=== PATIENT | female | born 1935 | race Caucasian/White ===

== ENCOUNTER 2024-12-09 05:38 | Inpatient (IN) | payer MEDICARE, MEDICAID ==
[~2024-12-09] VITALS: Ht 157.5 cm; Wt 72.6 kg
[~2024-12-09 05:38] MED LIST: HEPA50007 SQ
[2024-12-09 06:50] LABS: BASOPHILS % (AUTO) 0.9 % (0.0-2.0); EOSINOPHILS # (AUTO) 0.2 K/uL (0.0-0.7); EOSINOPHILS % (AUTO) 3.3 % (0.0-6.0); HEMATOCRIT 33 % (33-45); HEMOGLOBIN 10.9 g/dL (11.5-14.8); LYMPHOCYTES # (AUTO) 1.1 K/uL (0.8-4.8); LYMPHOCYTES % (AUTO) 22.6 % (20.0-44.0); MEAN CORPUSCULAR HEMOGLOBIN 30 PG (26.0-33.0); MEAN CORPUSCULAR HGB CONC 33 g/dl (31.0-36.0); MEAN CORPUSCULAR VOLUME 91 fL (82-100); MONOCYTES # (AUTO) 0.4 K/uL (0.1-1.30); MONOCYTES % (AUTO) 8.9 % (2.0-12.0); NEUTROPHILS % (AUTO) 64.3 % (43.0-81.0); PLATELET COUNT (AUTO) 292 K/uL (150-450); RED BLOOD CELL COUNT(AUTO) 3.63 MIL/uL (4.0-5.2); RED CELL DISTRIBUTION WIDTH 18.2 % (11.5-15.0); WHITE BLOOD COUNT (AUTO) 4.7 K/uL (4.3-11.0)
[2024-12-09 06:57] LABS: CALCIUM, SERUM 9.5 mg/dL (8.5-10.1); CARBON DIOXIDE 25 mmol/L (21-32); CHLORIDE 101 mmol/L (98-107); CREATININE 2.1 mg/dL (0.6-1.3); GLUCOSE 104 mg/dL (74-106); SODIUM SERUM 137 mmol/L (136-145); UREA NITROGEN, BLOOD 28 mg/dL (7-18)
[2024-12-09 07:10] LABS: ALANINE AMINOTRANSFERASE 18 U/L (12-78); ALBUMIN 3.1 g/dL (3.4-5.0); ALKALINE PHOSPHATASE 144 U/L (46-116); ASPARTATE AMINOTRANSFERASE 22 U/L (15-37); BILIRUBIN,DIRECT 0.1 mg/dL (0.0-0.2); BILIRUBIN,TOTAL 0.3 mg/dL (0.2-1.0); NT-PRO BNP 2470 pg/mL (0-125); TOTAL PROTEIN, SERUM 6.9 g/dL (6.4-8.2)
[2024-12-09] MEDS: ASPIRIN 325 MG TABLET PO ONE (07:41)
[2024-12-09] MEDS ORDERED: TRAZ-182 PO (09:54)
[2024-12-09] MEDS ORDERED: MAGN400O6 PO (09:54)
[2024-12-09] MEDS ORDERED: BISA10SU11 RC (09:54)
[2024-12-09] MEDS ORDERED: FERR325T24 PO (09:54)
[2024-12-09] MEDS ORDERED: ACET325T53 PO (09:54)
[2024-12-09] MEDS ORDERED: ROSU20TA32 PO (09:54)
[2024-12-09] MEDS ORDERED: LEVO75TA7 PO (09:54)
[2024-12-09] MEDS ORDERED: NIFE-34 PO (09:54)
[2024-12-09] MEDS ORDERED: MELA3TAB41 PO (09:54)
[2024-12-09] MEDS ORDERED: HYDR100T27 PO (09:54)
[2024-12-09] MEDS ORDERED: NA P133E RC (09:54)
[2024-12-09] MEDS ORDERED: CLON0.3P TD (09:54)
[2024-12-09] MEDS ORDERED: DEXL60CA3 PO (09:54)
[2024-12-09] MEDS ORDERED: DICL100G34 TP (09:54)
[2024-12-09] MEDS ORDERED: AMIO200T5 PO (09:54)
[2024-12-09] MEDS ORDERED: DOCU100C36 PO (09:54)
[2024-12-09] MEDS ORDERED: POLY17PO4 PO (09:54)
[2024-12-09] MEDS ORDERED: HYDR4TAB4 PO (09:54)
[2024-12-09] MEDS ORDERED: ACET-73 PO (09:54)
[2024-12-09] MEDS ORDERED: HYDR2TAB7 PO (09:55)
[2024-12-09 12:00] VITALS: BP 144/71; TEMP 98.2; O2SAT 97
[2024-12-09 16:00] VITALS: BP 126/49; TEMP 97.6; O2SAT 100
[2024-12-09] MEDS ORDERED: ONDANSETRON HCL/PF 4 MG/2 ML VIAL IVP PRN (16:00)
[2024-12-09] MEDS ORDERED: NA PHOS,M-B/NA PHOS,DI-BA 1 EA ENEMA RC PRN (16:00)
[2024-12-09] MEDS ORDERED: BISACODYL SUPP (10 MG) 10 MG/SUPP.RECT SUPP.RECT RC PRN (16:00)
[2024-12-09] MEDS ORDERED: MAGNESIUM HYDROXIDE 30 ML UDC PO PRN (16:00)
[2024-12-09] MEDS ORDERED: MAG HYDROX/AL HYDROX/SIMETH 30 ML UDC PO PRN (16:00)
[2024-12-09] MEDS: ENOXAPARIN SODIUM 30 MG/0.3 ML DISP.SYRIN SQ SCH (16:02)
[2024-12-09] MEDS: POLYETHYLENE GLYCOL 3350 17 GM POWD.PACK PO SCH (16:43)
[2024-12-09] MEDS: FERROUS SULFATE (325 MG) 325 MG/TAB TABLET PO SCH (16:43)
[2024-12-09] MEDS: hydrALAZINE HCL 50 MG TABLET PO SCH (16:45)
[2024-12-09 17:31] LABS: THYROID STIMULATING HORMONE 14.71 uIU/mL (0.358-3.74)
[2024-12-09 20:00] VITALS: BP 150/75; TEMP 97.9; O2SAT 97
[2024-12-09] MEDS: ATORVASTATIN 40 MG TABLET PO SCH (21:26)
[2024-12-09] MEDS: TRAZODONE 50 MG TABLET PO SCH (21:26)
[2024-12-10] VITALS: BP 161/88; TEMP 97.9; O2SAT 97
[2024-12-10 04:00] VITALS: BP 159/84; TEMP 97.8; O2SAT 97
[2024-12-10] MEDS: NITROGLYCERIN 0.4 MG/TAB BOTTLE SL PRN (06:12)
[2024-12-10] MEDS: ACETAMINOPHEN 325 MG TABLET PO PRN (06:57)
[2024-12-10] MEDS: MORPHINE SULFATE INJ 2 MG/ML DISP.SYRIN IV PRN (07:24)
[2024-12-10 07:31] LABS: BASOPHILS % (AUTO) 0.5 % (0.0-2.0); EOSINOPHILS # (AUTO) 0.1 K/uL (0.0-0.7); EOSINOPHILS % (AUTO) 2.1 % (0.0-6.0); HEMATOCRIT 37 % (33-45); HEMOGLOBIN 11.9 g/dL (11.5-14.8); LYMPHOCYTES # (AUTO) 1.3 K/uL (0.8-4.8); LYMPHOCYTES % (AUTO) 24.7 % (20.0-44.0); MEAN CORPUSCULAR HEMOGLOBIN 30 PG (26.0-33.0); MEAN CORPUSCULAR HGB CONC 33 g/dl (31.0-36.0); MEAN CORPUSCULAR VOLUME 91 fL (82-100); MONOCYTES # (AUTO) 0.4 K/uL (0.1-1.30); MONOCYTES % (AUTO) 7.9 % (2.0-12.0); NEUTROPHILS # (AUTO) 3.5 K/uL (1.8-8.9); NEUTROPHILS % (AUTO) 64.8 % (43.0-81.0); PLATELET COUNT (AUTO) 327 K/uL (150-450); RED BLOOD CELL COUNT(AUTO) 4.04 MIL/uL (4.0-5.2); RED CELL DISTRIBUTION WIDTH 18.1 % (11.5-15.0); WHITE BLOOD COUNT (AUTO) 5.3 K/uL (4.3-11.0)
[2024-12-10 07:51] LABS: MAGNESIUM 2.1 mg/dL (1.8-2.4); PHOSPHORUS 2.8 mg/dL (2.5-4.9); POTASSIUM 4.3 mmol/L (3.5-5.1)
[2024-12-10 08:00] VITALS: BP 166/83; TEMP 98.6; O2SAT 100
[2024-12-10] MEDS: LEVOTHYROXINE SODIUM 75 MCG TABLET PO SCH (08:20)
[2024-12-10] MEDS: NIFEdipine XL (30MG) 30 MG TAB PO SCH (08:21)
[2024-12-10] MEDS: PANTOPRAZOLE 40 MG TABLET.DR PO SCH (08:21)
[2024-12-10] MEDS: DOCUSATE SODIUM 100 MG CAPSULE PO SCH (08:21)
[2024-12-10] MEDS: AMIODARONE HCL 200 MG TABLET PO SCH (08:22)
[2024-12-10] MEDS: METOPROLOL TARTRATE 50 MG TABLET PO SCH (11:03)
[2024-12-10 12:00] VITALS: BP 138/77; TEMP 97.9; O2SAT 98
[2024-12-10 16:47] VITALS: BP 123/77; TEMP 98.4; O2SAT 99
[2024-12-10 20:00] VITALS: BP 145/88; TEMP 98.2; O2SAT 99
[2024-12-11] VITALS: BP 148/77; TEMP 98.2; O2SAT 98
[2024-12-11 05:00] VITALS: BP 156/81; TEMP 98.1; O2SAT 98
[2024-12-11 06:20] LABS: BASOPHILS % (AUTO) 0.9 % (0.0-2.0); EOSINOPHILS # (AUTO) 0.2 K/uL (0.0-0.7); EOSINOPHILS % (AUTO) 2.8 % (0.0-6.0); HEMATOCRIT 37 % (33-45); LYMPHOCYTES # (AUTO) 1.3 K/uL (0.8-4.8); LYMPHOCYTES % (AUTO) 24.9 % (20.0-44.0); MEAN CORPUSCULAR HEMOGLOBIN 30 PG (26.0-33.0); MEAN CORPUSCULAR HGB CONC 32 g/dl (31.0-36.0); MEAN CORPUSCULAR VOLUME 91 fL (82-100); MONOCYTES # (AUTO) 0.4 K/uL (0.1-1.30); MONOCYTES % (AUTO) 8.3 % (2.0-12.0); NEUTROPHILS # (AUTO) 3.4 K/uL (1.8-8.9); NEUTROPHILS % (AUTO) 63.1 % (43.0-81.0); PLATELET COUNT (AUTO) 332 K/uL (150-450); RED BLOOD CELL COUNT(AUTO) 4.05 MIL/uL (4.0-5.2); RED CELL DISTRIBUTION WIDTH 18.1 % (11.5-15.0); WHITE BLOOD COUNT (AUTO) 5.4 K/uL (4.3-11.0)
[2024-12-11 06:31] LABS: ALBUMIN 3.2 g/dL (3.4-5.0); BILIRUBIN,TOTAL 0.3 mg/dL (0.2-1.0); CALCIUM, SERUM 9.9 mg/dL (8.5-10.1); MAGNESIUM 2.2 mg/dL (1.8-2.4); PHOSPHORUS 3.8 mg/dL (2.5-4.9); POTASSIUM 3.9 mmol/L (3.5-5.1); TOTAL PROTEIN, SERUM 7.1 g/dL (6.4-8.2)
[2024-12-11 07:08] LABS: CREATININE, URINE 61.9 MG/DL (30.0-125.0); URINE TOTAL PROTEIN 37.8 mg/dL (0-11.9)
[2024-12-11 07:24] LABS: APPEARANCE,URINE CLEAR (CLEAR); BILIRUBIN,URINE NEGATIVE (NEGATIVE); BLOOD, URINE NEGATIVE Ery/uL (NEGATIVE); COLOR,URINE YELLOW (YELLOW); KETONES,URINE NEGATIVE (NEGATIVE); LEUKOCYTE ESTERASE ,URINE NEGATIVE (NEGATIVE); NITRITE, URINE NEGATIVE (NEGATIVE); PROTEIN,URINE TRACE mg/dl (NEGATIVE); UGLUCOSE NEGATIVE (NEGATIVE); UROBILINOGEN,URINE 0.2 EU/dL (0.2)
[2024-12-11 07:48] LABS: ADD URINE CULTURE NO; BACTERIA,URINE Rare /HPF (None Seen); RBC,URINE 0-2 /HPF (0-2); SQUAMOUS EPITHELIAL CELL,UR 0-2 /HPF (None Seen)
[2024-12-11 08:00] VITALS: BP 144/79; TEMP 98.2; O2SAT 96
[2024-12-11 10:44] LABS: EOSINOPHIL,URINE None Seen
[2024-12-11 12:00] VITALS: BP 135/74; TEMP 98.1; O2SAT 100
[2024-12-11] MEDS: IV 1/2NS 1000 ML 1,000 ML IV PRN (14:25)
[2024-12-11 16:00] VITALS: BP 130/67; TEMP 98.4; O2SAT 97
[2024-12-12 06:07] LABS: PTH, INTACT 15 pg/mL (15-65)
[2024-12-12 08:00] VITALS: BP 100/81; TEMP 98.4; O2SAT 100
[2024-12-12 12:00] VITALS: BP 125/80; TEMP 98.7; O2SAT 100
[2024-12-12 16:00] VITALS: BP 135/74; TEMP 97.5; O2SAT 99
[2024-12-12 17:05] VITALS: BP 138/74
[2024-12-12 20:04] LABS: CALCIUM, SERUM 9.2 mg/dL (8.5-10.1); CREATININE 2.2 mg/dL (0.6-1.3)
[2024-12-13 09:08] LABS: *SPE ALBUMIN 3.3 g/dL (2.9-4.4); *SPE ALPHA-1-GLOBULIN 0.4 g/dL (0.0-0.4); *SPE ALPHA-2-GLOBULIN 0.9 g/dL (0.4-1.0); *SPE BETA GLOBULIN 0.9 g/dL (0.7-1.3); *SPE GLOBULIN, TOTAL 3.3 g/dL (2.2-3.9); *SPE M-SPIKE Not Observed g/dL (Not Observed); *SPE PROTEIN TOTAL 6.6 g/dL (6.0-8.5); *SPEGAMMA GLOBULIN 1.1 g/dL (0.4-1.8)
== END 2024-12-12 20:10 | DRG 303 ==
LOC: ER 05:47 → TELE 10:17
DX: I25.10 Atherosclerotic heart disease of native coronary artery without angina pectoris (principal); D68.59 Other primary thrombophilia; N17.9 Acute kidney failure, unspecified; I48.0 Paroxysmal atrial fibrillation; E03.9 Hypothyroidism, unspecified; E78.5 Hyperlipidemia, unspecified; F32.A Depression, unspecified; G47.00 Insomnia, unspecified; Z79.890 Hormone replacement therapy; Z79.899 Other long term (current) drug therapy; I12.9 Hypertensive chronic kidney disease with stage 1 through stage 4 chronic kidney disease, or unspecified chronic kidney disease; N18.9 Chronic kidney disease, unspecified; N28.1 Cyst of kidney, acquired
CPT/HCPCS: 36415; 71045-TC; 76770-TC; 80048-TC; 80053-TC; 80061-TC; 80076-TC; 81001; 82550-TC; 82570-TC; 83735-TC; 83880; 83970; 84100-TC; 84155; 84165; 84300-TC; 84443-TC; 84484-TC; 85025-TC; 87081-TC; 93307-TC; 97110-TC; 97116-TC; 97530-TC; A4223; G0378; J1650; J2270; J3490; J7030

== ENCOUNTER 2024-12-31 09:19 | Inpatient (IN) | payer MEDICARE, OTHER ==
[~2024-12-31] VITALS: Ht 160 cm; Wt 59.0 kg
[~2024-12-31 09:19] MED LIST changes: +ACET-73 PO; +ACET325T53 PO; +AMIO200T5 PO; +BISA10SU11 RC; +CLON0.3P TD; +DEXL60CA3 PO; +DICL100G34 TP; +DOCU100C36 PO; +FERR325T24 PO; +HYDR100T27 PO; +HYDR2TAB7 PO; +LEVO75TA7 PO; +MAGN400O6 PO; +MELA3TAB41 PO; +NA P133E RC; +NIFE-34 PO; +POLY17PO4 PO; +ROSU20TA32 PO; +TRAZ-182 PO; +VITS42.53 TP
[2024-12-31 10:32] LABS: BASOPHILS % (AUTO) 0.6 % (0.0-2.0); EOSINOPHILS # (AUTO) 0.1 K/uL (0.0-0.7); EOSINOPHILS % (AUTO) 1.7 % (0.0-6.0); HEMATOCRIT 36 % (33-45); HEMOGLOBIN 12.1 g/dL (11.5-14.8); LYMPHOCYTES # (AUTO) 1.9 K/uL (0.8-4.8); LYMPHOCYTES % (AUTO) 31.2 % (20.0-44.0); MEAN CORPUSCULAR HEMOGLOBIN 30 PG (26.0-33.0); MEAN CORPUSCULAR HGB CONC 33 g/dl (31.0-36.0); MEAN CORPUSCULAR VOLUME 90 fL (82-100); MONOCYTES # (AUTO) 0.5 K/uL (0.1-1.30); MONOCYTES % (AUTO) 7.7 % (2.0-12.0); NEUTROPHILS # (AUTO) 3.6 K/uL (1.8-8.9); NEUTROPHILS % (AUTO) 58.8 % (43.0-81.0); PLATELET COUNT (AUTO) 265 K/uL (150-450); RED BLOOD CELL COUNT(AUTO) 4.04 MIL/uL (4.0-5.2); RED CELL DISTRIBUTION WIDTH 17.4 % (11.5-15.0); WHITE BLOOD COUNT (AUTO) 6.2 K/uL (4.3-11.0)
[2024-12-31 10:41] LABS: CALCIUM, SERUM 10.3 mg/dL (8.5-10.1); CARBON DIOXIDE 23 mmol/L (21-32); CHLORIDE 105 mmol/L (98-107); CREATININE 2.2 mg/dL (0.6-1.3); GLUCOSE 88 mg/dL (74-106); POTASSIUM 4.2 mmol/L (3.5-5.1); SODIUM SERUM 141 mmol/L (136-145); UREA NITROGEN, BLOOD 40 mg/dL (7-18)
[2024-12-31 10:45] LABS: INR 0.99 (0.91-1.10); PARTIAL THROMBOPLASTIN TIME 28.4 SEC (24.3-34.3); PROTHROMBIN TIME 10.5 SECS (9.2-11.1)
[2024-12-31 10:48] LABS: ALANINE AMINOTRANSFERASE 34 U/L (12-78); ALBUMIN 3.7 g/dL (3.4-5.0); ALKALINE PHOSPHATASE 115 U/L (46-116); ASPARTATE AMINOTRANSFERASE 29 U/L (15-37); BILIRUBIN,DIRECT 0.1 mg/dL (0.0-0.2); BILIRUBIN,TOTAL 0.2 mg/dL (0.2-1.0); TOTAL PROTEIN, SERUM 7.9 g/dL (6.4-8.2)
[2024-12-31] MEDS ORDERED: NITR0.4T48 SL (10:52)
[2024-12-31] MEDS ORDERED: [UNRECOGNIZED DRUG - OTHER] TP (10:52)
[2024-12-31] MEDS ORDERED: PANT40TA49 PO (10:52)
[2024-12-31] MEDS ORDERED: METO50TA16 PO (10:52)
[2024-12-31] MEDS ORDERED: LORA-258 PO (10:52)
[2024-12-31] MEDS ORDERED: APIX2.5T PO (10:52)
[2024-12-31 11:53] LABS: APPEARANCE,URINE SLIGHTLY CLOUDY (CLEAR); BILIRUBIN,URINE NEGATIVE (NEGATIVE); BLOOD, URINE NEGATIVE Ery/uL (NEGATIVE); COLOR,URINE YELLOW (YELLOW); KETONES,URINE NEGATIVE (NEGATIVE); LEUKOCYTE ESTERASE ,URINE 2+ (NEGATIVE); NITRITE, URINE NEGATIVE (NEGATIVE); PROTEIN,URINE TRACE mg/dl (NEGATIVE); UGLUCOSE NEGATIVE (NEGATIVE); UROBILINOGEN,URINE 0.2 EU/dL (0.2)
[2024-12-31 12:44] LABS: BACTERIA,URINE Many /HPF (None Seen)
[2024-12-31 12:45] LABS: ADD URINE CULTURE YES; SQUAMOUS EPITHELIAL CELL,UR Few /HPF (None Seen)
[2024-12-31] MEDS ORDERED: Z GUARD REMEDY 4 OZ OINT TP PRN (13:00)
[2024-12-31] MEDS ORDERED: MAGNESIUM HYDROXIDE 30 ML UDC PO PRN (13:00)
[2024-12-31] MEDS ORDERED: MAG HYDROX/AL HYDROX/SIMETH 30 ML UDC PO PRN (13:00)
[2024-12-31] MEDS ORDERED: ONDANSETRON HCL/PF 4 MG/2 ML VIAL IVP PRN (13:00)
[2024-12-31] MEDS: CEFTRIAXONE 1 G in IV D5W 50 ML IV SCH (13:19)
[2024-12-31] MEDS: IV NS 0.9% 1,000 ML IV PRN (13:19)
[2024-12-31 13:59] VITALS: BP 148/91; TEMP 97.9; O2SAT 100
[2024-12-31] MEDS: ACETAMINOPHEN 325 MG TABLET PO PRN (14:53)
[2024-12-31 16:24] VITALS: BP 160/60; TEMP 97.9; O2SAT 97
[2024-12-31] MEDS: PANTOPRAZOLE 40 MG TABLET.DR PO SCH (17:13)
[2024-12-31] MEDS: FERROUS SULFATE (325 MG) 325 MG/TAB TABLET PO SCH (17:13)
[2024-12-31] MEDS: POLYETHYLENE GLYCOL 3350 17 GM POWD.PACK PO SCH (17:13)
[2024-12-31] MEDS: APIXABAN 2.5 MG TABLET PO SCH (17:16)
[2024-12-31] MEDS: ATORVASTATIN 40 MG TABLET PO SCH (22:00)
[2024-12-31 23:49] VITALS: BP 164/91; TEMP 98; O2SAT 96
[2025-01-01] MEDS ORDERED: hydrALAZINE HCL 10 MG TABLET PO PRN (06:30)
[2025-01-01 06:45] LABS: BASOPHILS % (AUTO) 0.6 % (0.0-2.0); EOSINOPHILS # (AUTO) 0.2 K/uL (0.0-0.7); EOSINOPHILS % (AUTO) 2.8 % (0.0-6.0); HEMATOCRIT 32 % (33-45); HEMOGLOBIN 10.9 g/dL (11.5-14.8); LYMPHOCYTES # (AUTO) 2.2 K/uL (0.8-4.8); LYMPHOCYTES % (AUTO) 33.9 % (20.0-44.0); MEAN CORPUSCULAR HEMOGLOBIN 31 PG (26.0-33.0); MEAN CORPUSCULAR HGB CONC 34 g/dl (31.0-36.0); MEAN CORPUSCULAR VOLUME 90 fL (82-100); MONOCYTES # (AUTO) 0.5 K/uL (0.1-1.30); MONOCYTES % (AUTO) 7.6 % (2.0-12.0); NEUTROPHILS # (AUTO) 3.6 K/uL (1.8-8.9); NEUTROPHILS % (AUTO) 55.1 % (43.0-81.0); PLATELET COUNT (AUTO) 240 K/uL (150-450); RED BLOOD CELL COUNT(AUTO) 3.57 MIL/uL (4.0-5.2); RED CELL DISTRIBUTION WIDTH 16.7 % (11.5-15.0); WHITE BLOOD COUNT (AUTO) 6.4 K/uL (4.3-11.0)
[2025-01-01 06:52] LABS: CREATININE 1.9 mg/dL (0.6-1.3); PHOSPHORUS 3.7 mg/dL (2.5-4.9); POTASSIUM 4.4 mmol/L (3.5-5.1)
[2025-01-01] MEDS: LEVOTHYROXINE SODIUM 88 MCG TABLET PO SCH (07:30)
[2025-01-01] MEDS ORDERED: LEVOTHYROXINE SODIUM 75 MCG TABLET PO SCH (07:30)
[2025-01-01] MEDS: DOCUSATE SODIUM 100 MG CAPSULE PO SCH (08:16)
[2025-01-01] MEDS: AMIODARONE HCL 200 MG TABLET PO SCH (08:16)
[2025-01-01] MEDS: VITAMINS A AND D TP SCH (08:22)
[2025-01-01] MEDS: NIFEDIPINE XL 60 MG TAB.ER.24 PO SCH ×2 (08:39→17:00)
[2025-01-01 10:07] LABS: THYROID STIMULATING HORMONE 10.46 uIU/mL (0.358-3.74)
[2025-01-01] MEDS: hydrALAZINE HCL IV 20 MG VIAL IV PRN (10:18)
[2025-01-01 20:00] VITALS: BP 153/99; TEMP 98.4; O2SAT 97
[2025-01-02 07:05] LABS: CALCIUM, SERUM 10.3 mg/dL (8.5-10.1); CREATININE 1.7 mg/dL (0.6-1.3); MAGNESIUM 1.9 mg/dL (1.8-2.4); PHOSPHORUS 3.9 mg/dL (2.5-4.9); POTASSIUM 3.9 mmol/L (3.5-5.1)
[2025-01-02 07:27] LABS: BASOPHILS % (AUTO) 0.4 % (0.0-2.0); EOSINOPHILS # (AUTO) 0.2 K/uL (0.0-0.7); EOSINOPHILS % (AUTO) 3.6 % (0.0-6.0); HEMATOCRIT 37 % (33-45); HEMOGLOBIN 12.1 g/dL (11.5-14.8); LYMPHOCYTES # (AUTO) 1.4 K/uL (0.8-4.8); LYMPHOCYTES % (AUTO) 29.7 % (20.0-44.0); MEAN CORPUSCULAR HEMOGLOBIN 30 PG (26.0-33.0); MEAN CORPUSCULAR HGB CONC 33 g/dl (31.0-36.0); MEAN CORPUSCULAR VOLUME 91 fL (82-100); MONOCYTES # (AUTO) 0.4 K/uL (0.1-1.30); MONOCYTES % (AUTO) 8.3 % (2.0-12.0); NEUTROPHILS # (AUTO) 2.8 K/uL (1.8-8.9); PLATELET COUNT (AUTO) 236 K/uL (150-450); RED BLOOD CELL COUNT(AUTO) 4.07 MIL/uL (4.0-5.2); RED CELL DISTRIBUTION WIDTH 17.6 % (11.5-15.0); WHITE BLOOD COUNT (AUTO) 4.8 K/uL (4.3-11.0)
[2025-01-02 07:30] VITALS: BP 179/98; TEMP 97.5; O2SAT 99
[2025-01-02 09:30] VITALS: BP 164/72
[2025-01-02] MEDS: busPIRone 5 MG TABLET PO SCH (12:52)
[2025-01-02 20:00] VITALS: BP 136/65; TEMP 98.4; O2SAT 96
[2025-01-02 21:08] VITALS: BP 136/65; TEMP 98.4; O2SAT 96
[2025-01-03 07:30] VITALS: BP 127/72; TEMP 97.9; O2SAT 98
[2025-01-03] MEDS: NIFEdipine XL (30MG) 30 MG TAB PO SCH (17:00)
[2025-01-03 20:00] VITALS: BP 169/72; TEMP 98.2; O2SAT 95
[2025-01-04 07:30] VITALS: BP 173/108; TEMP 98.1; O2SAT 99
[2025-01-04 08:15] LABS: ALANINE AMINOTRANSFERASE 27 U/L (12-78); ALBUMIN 3.4 g/dL (3.4-5.0); ALKALINE PHOSPHATASE 109 U/L (46-116); ASPARTATE AMINOTRANSFERASE 26 U/L (15-37); BILIRUBIN,TOTAL 0.3 mg/dL (0.2-1.0); CALCIUM, SERUM 10.3 mg/dL (8.5-10.1); CARBON DIOXIDE 20 mmol/L (21-32); CHLORIDE 106 mmol/L (98-107); CREATININE 1.8 mg/dL (0.6-1.3); GLUCOSE 125 mg/dL (74-106); POTASSIUM 4.2 mmol/L (3.5-5.1); SODIUM SERUM 140 mmol/L (136-145); TOTAL PROTEIN, SERUM 7.8 g/dL (6.4-8.2); UREA NITROGEN, BLOOD 24 mg/dL (7-18)
[2025-01-04] MEDS: DIVALPROEX SODIUM 125 MG CAP.SPRINK PO SCH (10:30)
[2025-01-04] MEDS: CEFEPIME 2 GM in IV D5W 100 ML IV SCH (10:35)
[2025-01-04 20:00] VITALS: BP 129/91; TEMP 97.8; O2SAT 98
[2025-01-04 20:49] LABS: BASOPHILS % (AUTO) 0.6 % (0.0-2.0); EOSINOPHILS # (AUTO) 0.1 K/uL (0.0-0.7); EOSINOPHILS % (AUTO) 1.4 % (0.0-6.0); HEMATOCRIT 38 % (33-45); HEMOGLOBIN 12.5 g/dL (11.5-14.8); LYMPHOCYTES # (AUTO) 2.1 K/uL (0.8-4.8); MEAN CORPUSCULAR HEMOGLOBIN 30 PG (26.0-33.0); MEAN CORPUSCULAR HGB CONC 33 g/dl (31.0-36.0); MEAN CORPUSCULAR VOLUME 89 fL (82-100); MONOCYTES # (AUTO) 0.6 K/uL (0.1-1.30); NEUTROPHILS # (AUTO) 4.9 K/uL (1.8-8.9); PLATELET COUNT (AUTO) 281 K/uL (150-450); RED BLOOD CELL COUNT(AUTO) 4.21 MIL/uL (4.0-5.2); RED CELL DISTRIBUTION WIDTH 16.8 % (11.5-15.0); WHITE BLOOD COUNT (AUTO) 7.8 K/uL (4.3-11.0)
[2025-01-05 07:00] VITALS: BP 141/49; TEMP 98.7; O2SAT 99
[2025-01-05 07:20] LABS: ALBUMIN 3.2 g/dL (3.4-5.0); BILIRUBIN,TOTAL 0.3 mg/dL (0.2-1.0); CALCIUM, SERUM 10.6 mg/dL (8.5-10.1); CREATININE 1.7 mg/dL (0.6-1.3); TOTAL PROTEIN, SERUM 7.5 g/dL (6.4-8.2)
[2025-01-05] MEDS ORDERED: CEFE2FRO IV (09:19)
[2025-01-05 10:20] VITALS: BP 114/77
[2025-01-06] MEDS ORDERED: CEFEPIME 1 GM VIAL IM SCH (21:00)
[2025-01-06] MEDS ORDERED: IV NS 0.9% 250 ML IV ONE (22:00)
[2025-01-06] MEDS ORDERED: IOHEXOL-350 100 ML VIAL IV ONE (22:00)
== END 2025-01-05 13:25 | DRG 73 ==
LOC: ER 09:22 → TELE 11:48 → MED 01-01 13:23
PROVIDERS: ADMIT Nurse Practitioner Acute Care; ATTEND Internal Medicine
DX: G90.89 Other disorders of autonomic nervous system (principal); N17.0 Acute kidney failure with tubular necrosis; N39.0 Urinary tract infection, site not specified; I13.0 Hypertensive heart and chronic kidney disease with heart failure and stage 1 through stage 4 chronic kidney disease, or unspecified chronic kidney disease; I50.32 Chronic diastolic (congestive) heart failure; D68.59 Other primary thrombophilia; M84.48XA Pathological fracture, other site, initial encounter for fracture; S09.90XA Unspecified injury of head, initial encounter; N18.9 Chronic kidney disease, unspecified; S80.02XA Contusion of left knee, initial encounter; W19.XXXA Unspecified fall, initial encounter; Y92.129 Unspecified place in nursing home as the place of occurrence of the external cause; Z79.01 Long term (current) use of anticoagulants; E03.9 Hypothyroidism, unspecified; Z79.890 Hormone replacement therapy; Z79.899 Other long term (current) drug therapy; E78.5 Hyperlipidemia, unspecified; F32.A Depression, unspecified; I48.0 Paroxysmal atrial fibrillation; B96.5 Pseudomonas (aeruginosa) (mallei) (pseudomallei) as the cause of diseases classified elsewhere; F41.9 Anxiety disorder, unspecified; F39 Unspecified mood [affective] disorder; G31.84 Mild cognitive impairment of uncertain or unknown etiology; E86.9 Volume depletion, unspecified; Z78.1 Physical restraint status
CPT/HCPCS: 36415; 70450-TC; 71045-TC; 72125-TC; 73552; 73564-TC; 80048-TC; 80053-TC; 80076-TC; 81001; 83735-TC; 83880; 84100-TC; 84439-TC; 84443-TC; 84484-TC; 85025-TC; 85730-TC; 87081-TC; 87086-TC; 87186-TC; 92526; 92611-TC; 97110-TC; 97116-TC; 97530-TC; G0378; J0360; J0692; J0696; J7030; J7050; J7060; Q9967

== ENCOUNTER 2025-01-06 19:41 | Inpatient (IN) | payer MEDICARE, OTHER ==
[~2025-01-06] VITALS: Ht 167.6 cm; Wt 60.3 kg
[~2025-01-06 19:41] MED LIST changes: -ACET325T53 PO; +APIX2.5T PO; +CEFE2FRO IV; -DEXL60CA3 PO; -DICL100G34 TP; -HEPA50007 SQ; +LORA-258 PO; -MAGN400O6 PO; -MELA3TAB41 PO; +METO50TA16 PO; +NITR0.4T48 SL; +PANT40TA49 PO; -TRAZ-182 PO; +[UNRECOGNIZED DRUG - OTHER] TP
[2025-01-06 20:31] LABS: BASOPHILS # (AUTO) 0.1 K/uL (0.0-0.2); BASOPHILS % (AUTO) 0.9 % (0.0-2.0); EOSINOPHILS # (AUTO) 0.1 K/uL (0.0-0.7); EOSINOPHILS % (AUTO) 1.9 % (0.0-6.0); HEMATOCRIT 34 % (33-45); HEMOGLOBIN 11.8 g/dL (11.5-14.8); LYMPHOCYTES # (AUTO) 2.1 K/uL (0.8-4.8); LYMPHOCYTES % (AUTO) 30.6 % (20.0-44.0); MEAN CORPUSCULAR HEMOGLOBIN 31 PG (26.0-33.0); MEAN CORPUSCULAR HGB CONC 34 g/dl (31.0-36.0); MEAN CORPUSCULAR VOLUME 89 fL (82-100); MONOCYTES # (AUTO) 0.6 K/uL (0.1-1.30); MONOCYTES % (AUTO) 8.3 % (2.0-12.0); NEUTROPHILS % (AUTO) 58.3 % (43.0-81.0); PLATELET COUNT (AUTO) 234 K/uL (150-450); RED BLOOD CELL COUNT(AUTO) 3.84 MIL/uL (4.0-5.2); RED CELL DISTRIBUTION WIDTH 16.4 % (11.5-15.0); WHITE BLOOD COUNT (AUTO) 6.9 K/uL (4.3-11.0)
[2025-01-06 20:42] LABS: SERUM AMMONIA 6 umol/L (11-32)
[2025-01-06 20:47] LABS: ALANINE AMINOTRANSFERASE 28 U/L (12-78); ALBUMIN 3.3 g/dL (3.4-5.0); ALCOHOL, BLOOD < 3 mg/dL (0-10); ALKALINE PHOSPHATASE 108 U/L (46-116); ASPARTATE AMINOTRANSFERASE 30 U/L (15-37); BILIRUBIN,DIRECT 0.1 mg/dL (0.0-0.2); BILIRUBIN,TOTAL 0.4 mg/dL (0.2-1.0); CALCIUM, SERUM 10.6 mg/dL (8.5-10.1); CARBON DIOXIDE 23 mmol/L (21-32); CHLORIDE 106 mmol/L (98-107); CREATININE 1.8 mg/dL (0.6-1.3); GLUCOSE 100 mg/dL (74-106); POTASSIUM 3.7 mmol/L (3.5-5.1); SODIUM SERUM 138 mmol/L (136-145); TOTAL PROTEIN, SERUM 7.8 g/dL (6.4-8.2); UREA NITROGEN, BLOOD 32 mg/dL (7-18)
[2025-01-06 20:51] LABS: INR 1.05 (0.91-1.10); PARTIAL THROMBOPLASTIN TIME 34.8 SEC (24.3-34.3); PROTHROMBIN TIME 11.1 SECS (9.2-11.1)
[2025-01-06 21:35] LABS: APPEARANCE,URINE SLIGHTLY CLOUDY (CLEAR); BILIRUBIN,URINE NEGATIVE (NEGATIVE); BLOOD, URINE 2+ Ery/uL (NEGATIVE); COLOR,URINE YELLOW (YELLOW); KETONES,URINE 1+ mg/dL (NEGATIVE); LEUKOCYTE ESTERASE ,URINE NEGATIVE (NEGATIVE); NITRITE, URINE NEGATIVE (NEGATIVE); PH,URINE 5.5 (5.0-8.0); PROTEIN,URINE 2+ mg/dl (NEGATIVE); UGLUCOSE NEGATIVE (NEGATIVE); UROBILINOGEN,URINE 0.2 EU/dL (0.2)
[2025-01-06 22:02] LABS: ADD URINE CULTURE NO; BACTERIA,URINE Rare /HPF (None Seen); HYALINE CASTS, URINE Few /LPF (None Seen); MUCUS,URINE Few /LPF (None Seen); RBC,URINE 21-50 /HPF (0-2); WBC,URINE 0-2 /HPF (0-3)
[2025-01-06] MEDS ORDERED: MAGNESIUM HYDROXIDE 30 ML UDC PO PRN (23:30)
[2025-01-06] MEDS ORDERED: MAG HYDROX/AL HYDROX/SIMETH 30 ML UDC PO PRN (23:30)
[2025-01-06] MEDS ORDERED: Z GUARD REMEDY 4 OZ OINT TP PRN (23:30)
[2025-01-06] MEDS ORDERED: ACETAMINOPHEN 325 MG TABLET PO PRN (23:30)
[2025-01-07] VITALS (14 sets, daily range): BP systolic 121–200; BP diastolic 58–110; TEMP 97.1–98.4; O2SAT 98–100
[2025-01-07] MEDS: ENOXAPARIN SODIUM 30 MG/0.3 ML DISP.SYRIN SQ SCH (00:18)
[2025-01-07] MEDS: hydrALAZINE HCL IV 20 MG VIAL IV PRN (01:04)
[2025-01-07 05:51] LABS: BASOPHILS % (AUTO) 0.6 % (0.0-2.0); EOSINOPHILS # (AUTO) 0.1 K/uL (0.0-0.7); EOSINOPHILS % (AUTO) 1.9 % (0.0-6.0); HEMATOCRIT 36 % (33-45); LYMPHOCYTES % (AUTO) 28.4 % (20.0-44.0); MEAN CORPUSCULAR HEMOGLOBIN 30 PG (26.0-33.0); MEAN CORPUSCULAR HGB CONC 33 g/dl (31.0-36.0); MEAN CORPUSCULAR VOLUME 90 fL (82-100); MONOCYTES # (AUTO) 0.6 K/uL (0.1-1.30); MONOCYTES % (AUTO) 8.3 % (2.0-12.0); NEUTROPHILS # (AUTO) 4.4 K/uL (1.8-8.9); NEUTROPHILS % (AUTO) 60.8 % (43.0-81.0); PLATELET COUNT (AUTO) 223 K/uL (150-450); RED BLOOD CELL COUNT(AUTO) 4.04 MIL/uL (4.0-5.2); RED CELL DISTRIBUTION WIDTH 16.6 % (11.5-15.0); WHITE BLOOD COUNT (AUTO) 7.2 K/uL (4.3-11.0)
[2025-01-07 06:54] LABS: CALCIUM, SERUM 10.3 mg/dL (8.5-10.1); CARBON DIOXIDE 19 mmol/L (21-32); CHLORIDE 106 mmol/L (98-107); CREATININE 1.7 mg/dL (0.6-1.3); GLUCOSE 94 mg/dL (74-106); MAGNESIUM 1.7 mg/dL (1.8-2.4); PHOSPHORUS 3.7 mg/dL (2.5-4.9); POTASSIUM 4.5 mmol/L (3.5-5.1); SODIUM SERUM 138 mmol/L (136-145); UREA NITROGEN, BLOOD 30 mg/dL (7-18)
[2025-01-07] MEDS: PANTOPRAZOLE 40 MG TABLET.DR PO SCH ×2 (08:18→09:34)
[2025-01-07] MEDS: NIFEDIPINE XL 60 MG TAB.ER.24 PO SCH (08:18)
[2025-01-07] MEDS: METOPROLOL TARTRATE 50 MG TABLET PO SCH (09:00)
[2025-01-07] MEDS: DOCUSATE SODIUM LIQ 100 MG/10 ML UDC PO SCH (09:34)
[2025-01-07] MEDS: AMIODARONE HCL 200 MG TABLET PO SCH (09:34)
[2025-01-07] MEDS: NIFEdipine XL (30MG) 30 MG TAB PO SCH (09:35)
[2025-01-07] MEDS: POLYETHYLENE GLYCOL 3350 17 GM POWD.PACK PO SCH (09:36)
[2025-01-07] MEDS ORDERED: HYDR-4075 PO (09:37)
[2025-01-07] MEDS ORDERED: CRAN300T PO (09:37)
[2025-01-07] MEDS ORDERED: ACET325T53 PO (09:37)
[2025-01-07] MEDS ORDERED: DICL100G34 TP (09:37)
[2025-01-07] MEDS: Magnesium 1GM/D5W 100ML PREMIX 100 ML IV SCH (09:37)
[2025-01-07] MEDS ORDERED: MAGN400O6 PO (09:37)
[2025-01-07] MEDS: APIXABAN 2.5 MG TABLET PO SCH (09:38)
[2025-01-07] MEDS: CEFEPIME 1 GM in IV D5W 50 ML IV SCH (09:42)
[2025-01-07] MEDS ORDERED: Magnesium 1GM/D5W 100ML PREMIX 100 ML IV SCH (10:00)
[2025-01-07] MEDS: LORAZEPAM INJ 2 MG/ML VIAL IV STA (10:57)
[2025-01-07] MEDS ORDERED: LEVETIRACETAM (500MG) 1,000 MG in IV NS 0.9% 90 ML IV ONE (11:00)
[2025-01-07] MEDS ORDERED: LEVETIRACETAM IV SCH (11:00)
[2025-01-07] MEDS ORDERED: NS 0.9% IV SCH (11:00)
[2025-01-07] MEDS: LEVETIRACETAM IV ONE (11:32)
[2025-01-07] MEDS: NS 0.9% IV ONE (11:32)
[2025-01-07] MEDS: hydrALAZINE HCL 50 MG TABLET PO SCH (13:00)
[2025-01-07] MEDS: FERROUS SULFATE (325 MG) 325 MG/TAB TABLET PO SCH (17:18)
[2025-01-07] MEDS: LORAZEPAM INJ 2 MG/ML VIAL IV PRN (17:30)
[2025-01-07] MEDS: ATORVASTATIN 40 MG TABLET PO SCH (22:02)
[2025-01-07] MEDS: LEVETIRACETAM (500MG) 1,000 MG in IV NS 0.9% 100 ML IV SCH (23:04)
[2025-01-08] VITALS (39 sets, daily range): BP systolic 81–216; BP diastolic 47–93; TEMP 97–98; O2SAT 95–100
[2025-01-08 05:06] LABS: BASOPHILS % (AUTO) 0.6 % (0.0-2.0); EOSINOPHILS # (AUTO) 0.2 K/uL (0.0-0.7); EOSINOPHILS % (AUTO) 2.9 % (0.0-6.0); HEMATOCRIT 31 % (33-45); HEMOGLOBIN 10.6 g/dL (11.5-14.8); LYMPHOCYTES # (AUTO) 1.2 K/uL (0.8-4.8); LYMPHOCYTES % (AUTO) 19.8 % (20.0-44.0); MEAN CORPUSCULAR HEMOGLOBIN 31 PG (26.0-33.0); MEAN CORPUSCULAR HGB CONC 34 g/dl (31.0-36.0); MEAN CORPUSCULAR VOLUME 90 fL (82-100); MONOCYTES # (AUTO) 0.4 K/uL (0.1-1.30); MONOCYTES % (AUTO) 6.9 % (2.0-12.0); NEUTROPHILS # (AUTO) 4.4 K/uL (1.8-8.9); NEUTROPHILS % (AUTO) 69.8 % (43.0-81.0); PLATELET COUNT (AUTO) 218 K/uL (150-450); RED BLOOD CELL COUNT(AUTO) 3.42 MIL/uL (4.0-5.2); RED CELL DISTRIBUTION WIDTH 16.8 % (11.5-15.0); WHITE BLOOD COUNT (AUTO) 6.3 K/uL (4.3-11.0)
[2025-01-08 05:55] LABS: CALCIUM, SERUM 10.3 mg/dL (8.5-10.1); CREATININE 1.9 mg/dL (0.6-1.3); MAGNESIUM 2.5 mg/dL (1.8-2.4); PHOSPHORUS 4.1 mg/dL (2.5-4.9); POTASSIUM 3.7 mmol/L (3.5-5.1)
[2025-01-08] MEDS: LEVOTHYROXINE SODIUM 75 MCG TABLET PO SCH (07:40)
[2025-01-08] MEDS ORDERED: LEVETIRACETAM (500MG) 1,000 MG in IV NS 0.9% 100 ML IV SCH (09:00)
[2025-01-08] MEDS: LACOSAMIDE 200 MG in IV NS 0.9% 100 ML IV ONE (18:46)
[2025-01-08] MEDS: LEVETIRACETAM (500MG) 1,500 MG in IV NS 0.9% 85 ML IV SCH (20:28)
[2025-01-08] MEDS: LACOSAMIDE 100 MG in IV NS 0.9% 50 ML IV SCH (21:18)
[2025-01-09] VITALS (51 sets, daily range): BP systolic 95–185; BP diastolic 41–95; TEMP 96.7–98.2; O2SAT 97–100
[2025-01-09 10:16] LABS: FOLIC ACID > 20.0 ng/mL (>3.0)
[2025-01-09 13:25] LABS: THYROID STIMULATING HORMONE 7.02 uIU/mL (0.358-3.74)
[2025-01-09] MEDS: LIDOCAINE 1% INJ 50 ML MDV IJ ONE (14:00)
[2025-01-09] MEDS: IV NS 0.9% 1,000 ML IV PRN (16:18)
[2025-01-09] MEDS ORDERED: MAGNESIUM HYDROXIDE 30 ML UDC NG PRN (17:30)
[2025-01-09] MEDS: DIVALPROEX SODIUM 125 MG CAP.SPRINK NG SCH (17:30)
[2025-01-09] MEDS ORDERED: PHARMACY TO CHANGE PO MEDS TO GT/NG XX PRN (17:30)
[2025-01-09] MEDS: FERROUS SULFATE (325 MG) 325 MG/TAB TABLET NG SCH (17:31)
[2025-01-09] MEDS ORDERED: DIVALPROEX SODIUM 125 MG CAP.SPRINK NG SCH (18:00)
[2025-01-09 20:35] LABS: CSF GLUCOSE 65 mg/dL (40-70); CSF PROTEIN 41.02 mg/dL (15-45)
[2025-01-09] MEDS: LEVETIRACETAM (500MG) 2,000 MG in IV NS 0.9% 80 ML IV SCH (20:38)
[2025-01-09] MEDS ORDERED: LACOSAMIDE 200 MG in IV NS 0.9% 50 ML IV SCH (21:00)
[2025-01-09] MEDS ORDERED: LEVETIRACETAM (500MG) 500 MG in IV NS 0.9% 100 ML IV SCH (21:00)
[2025-01-09] MEDS: ATORVASTATIN 40 MG TABLET NG SCH (21:14)
[2025-01-09] MEDS: METOPROLOL TARTRATE 50 MG TABLET NG SCH (21:16)
[2025-01-09] MEDS: VIMPAT 200 MG in IV NS 0.9% 100 ML IV SCH (21:19)
[2025-01-09 21:47] LABS: CSF WHITE BLOOD CELL COUNT 0.55 /cumm (0-5); CSF WHITE BLOOD CELL COUNT 1.65 /cumm (0-5)
[2025-01-09 21:51] LABS: CSF APPEARANCE CLEAR (CLEAR); CSF COLOR COLORLESS (COLORLESS); CSF WHITE BLOOD CELL COUNT 0.55 /cumm (0-5); CSF WHITE BLOOD CELL COUNT 1.65 /cumm (0-5)
[2025-01-09] MEDS ORDERED: MAG HYDROX/AL HYDROX/SIMETH 30 ML UDC NG PRN (23:30)
[2025-01-10] VITALS (52 sets, daily range): BP systolic 103–223; BP diastolic 40–83; TEMP 97.7–98.9; O2SAT 97–100
[2025-01-10] MEDS: JEVITY 1.2 CAL 1,000 ML BOTTLE GT PRN (03:04)
[2025-01-10 03:45] LABS: BASOPHILS % (AUTO) 0.6 % (0.0-2.0); EOSINOPHILS # (AUTO) 0.2 K/uL (0.0-0.7); EOSINOPHILS % (AUTO) 3.4 % (0.0-6.0); HEMATOCRIT 29 % (33-45); HEMOGLOBIN 9.8 g/dL (11.5-14.8); LYMPHOCYTES % (AUTO) 33.9 % (20.0-44.0); MEAN CORPUSCULAR HEMOGLOBIN 31 PG (26.0-33.0); MEAN CORPUSCULAR HGB CONC 34 g/dl (31.0-36.0); MEAN CORPUSCULAR VOLUME 90 fL (82-100); MONOCYTES # (AUTO) 0.6 K/uL (0.1-1.30); MONOCYTES % (AUTO) 9.4 % (2.0-12.0); NEUTROPHILS # (AUTO) 3.1 K/uL (1.8-8.9); NEUTROPHILS % (AUTO) 52.7 % (43.0-81.0); PLATELET COUNT (AUTO) 221 K/uL (150-450); RED BLOOD CELL COUNT(AUTO) 3.19 MIL/uL (4.0-5.2); RED CELL DISTRIBUTION WIDTH 16.2 % (11.5-15.0); WHITE BLOOD COUNT (AUTO) 5.8 K/uL (4.3-11.0)
[2025-01-10 04:01] LABS: ALBUMIN 2.6 g/dL (3.4-5.0); BILIRUBIN,TOTAL 0.2 mg/dL (0.2-1.0); CALCIUM, SERUM 9.7 mg/dL (8.5-10.1); CREATININE 2.3 mg/dL (0.6-1.3); MAGNESIUM 2.1 mg/dL (1.8-2.4); PHOSPHORUS 3.4 mg/dL (2.5-4.9); TOTAL PROTEIN, SERUM 6.3 g/dL (6.4-8.2)
[2025-01-10] MEDS: DIVALPROEX SODIUM 125 MG CAP.SPRINK NG SCH (09:54)
[2025-01-10] MEDS: DOCUSATE SODIUM LIQ 100 MG/10 ML UDC NG SCH (09:55)
[2025-01-10] MEDS: AMIODARONE HCL 200 MG TABLET NG SCH (09:55)
[2025-01-10] MEDS: POLYETHYLENE GLYCOL 3350 17 GM POWD.PACK NG SCH (09:56)
[2025-01-10] MEDS: PANTOPRAZOLE 40 MG/PACK PACK NG SCH (09:56)
[2025-01-10] MEDS: LEVOTHYROXINE SODIUM 75 MCG TABLET NG SCH (09:56)
[2025-01-10] MEDS: hydrALAZINE HCL 50 MG TABLET NG SCH (09:56)
[2025-01-10] MEDS: APIXABAN 2.5 MG TABLET NG SCH (10:02)
[2025-01-10] MEDS: methylPREDNISolone SOD SUCC 125 MG/2ML VIAL IV SCH (11:56)
[2025-01-10 12:11] LABS: METHYLMALONIC ACID 248 nmol/L (0-378)
[2025-01-10] MEDS: ONDANSETRON HCL/PF 4 MG/2 ML VIAL IVP PRN (22:40)
[2025-01-11] VITALS (70 sets, daily range): BP systolic 102–229; BP diastolic 43–118; TEMP 97.5–98.8; O2SAT 93–100
[2025-01-11 04:43] LABS: BASOPHILS % (AUTO) 0.2 % (0.0-2.0); HEMATOCRIT 29 % (33-45); HEMOGLOBIN 9.7 g/dL (11.5-14.8); LYMPHOCYTES # (AUTO) 0.8 K/uL (0.8-4.8); LYMPHOCYTES % (AUTO) 19.1 % (20.0-44.0); MEAN CORPUSCULAR HEMOGLOBIN 31 PG (26.0-33.0); MEAN CORPUSCULAR HGB CONC 34 g/dl (31.0-36.0); MEAN CORPUSCULAR VOLUME 90 fL (82-100); MONOCYTES # (AUTO) 0.1 K/uL (0.1-1.30); MONOCYTES % (AUTO) 3.5 % (2.0-12.0); NEUTROPHILS # (AUTO) 3.1 K/uL (1.8-8.9); NEUTROPHILS % (AUTO) 77.2 % (43.0-81.0); PLATELET COUNT (AUTO) 238 K/uL (150-450); RED BLOOD CELL COUNT(AUTO) 3.17 MIL/uL (4.0-5.2); RED CELL DISTRIBUTION WIDTH 16.2 % (11.5-15.0)
[2025-01-11 05:07] LABS: ALBUMIN 2.6 g/dL (3.4-5.0); BILIRUBIN,TOTAL 0.2 mg/dL (0.2-1.0); CALCIUM, SERUM 9.3 mg/dL (8.5-10.1); CREATININE 2.1 mg/dL (0.6-1.3); POTASSIUM 4.1 mmol/L (3.5-5.1); TOTAL PROTEIN, SERUM 6.3 g/dL (6.4-8.2)
[2025-01-11] MEDS ORDERED: NICARDIPINE HCL 40 MG in IV NS 0.9% 184 ML IV PRN (14:30)
[2025-01-11] MEDS: NICARDIPINE IN NACL, ISO-OSM 200 ML IV PRN (14:54)
[2025-01-11 15:31] LABS: APPEARANCE,URINE CLEAR (CLEAR); BILIRUBIN,URINE NEGATIVE (NEGATIVE); BLOOD, URINE NEGATIVE Ery/uL (NEGATIVE); COLOR,URINE YELLOW (YELLOW); CREATININE, URINE 109.7 MG/DL (30.0-125.0); KETONES,URINE 1+ mg/dL (NEGATIVE); LEUKOCYTE ESTERASE ,URINE NEGATIVE (NEGATIVE); NITRITE, URINE NEGATIVE (NEGATIVE); PROTEIN,URINE 2+ mg/dl (NEGATIVE); UGLUCOSE NEGATIVE (NEGATIVE); URINE TOTAL PROTEIN 153.4 mg/dL (0-11.9); UROBILINOGEN,URINE 0.2 EU/dL (0.2)
[2025-01-11] MEDS ORDERED: VALPROATE 1,000 MG in IV D5W 100 ML IV ONE (18:00)
[2025-01-11] MEDS: VALPROATE 1,000 MG in IV D5W 100 ML IV ONE (18:39)
[2025-01-11 19:16] LABS: RBC,URINE 0-2 /HPF (0-2)
[2025-01-11 19:17] LABS: ADD URINE CULTURE NO; BACTERIA,URINE Few /HPF (None Seen); HYALINE CASTS, URINE Few /LPF (None Seen)
[2025-01-11 20:11] LABS: EOSINOPHIL,URINE None Seen
[2025-01-11 20:22] LABS: SQUAMOUS EPITHELIAL CELL,UR Rare /HPF (None Seen)
[2025-01-11] MEDS: DIVALPROEX SODIUM 125 MG CAP.SPRINK NG SCH (21:05)
[2025-01-12] VITALS (86 sets, daily range): BP systolic 105–170; BP diastolic 44–87; TEMP 98.1–98.9; O2SAT 91–100
[2025-01-12 04:46] LABS: BASOPHILS % (AUTO) 0.1 % (0.0-2.0); HEMATOCRIT 27 % (33-45); HEMOGLOBIN 9.1 g/dL (11.5-14.8); LYMPHOCYTES # (AUTO) 1.6 K/uL (0.8-4.8); LYMPHOCYTES % (AUTO) 15.2 % (20.0-44.0); MEAN CORPUSCULAR HEMOGLOBIN 31 PG (26.0-33.0); MEAN CORPUSCULAR HGB CONC 34 g/dl (31.0-36.0); MEAN CORPUSCULAR VOLUME 90 fL (82-100); MONOCYTES # (AUTO) 0.4 K/uL (0.1-1.30); NEUTROPHILS # (AUTO) 8.2 K/uL (1.8-8.9); NEUTROPHILS % (AUTO) 80.7 % (43.0-81.0); PLATELET COUNT (AUTO) 242 K/uL (150-450); RED BLOOD CELL COUNT(AUTO) 2.99 MIL/uL (4.0-5.2); RED CELL DISTRIBUTION WIDTH 16.5 % (11.5-15.0); WHITE BLOOD COUNT (AUTO) 10.2 K/uL (4.3-11.0)
[2025-01-12 05:23] LABS: ALBUMIN 2.5 g/dL (3.4-5.0); BILIRUBIN,TOTAL 0.2 mg/dL (0.2-1.0); CALCIUM, SERUM 9.4 mg/dL (8.5-10.1); CREATININE 1.8 mg/dL (0.6-1.3); PHOSPHORUS 3.1 mg/dL (2.5-4.9); POTASSIUM 4.4 mmol/L (3.5-5.1)
[2025-01-12 07:12] LABS: *ANA ANTI-CENTROMERE B AB <0.2 AI (0.0-0.9); *ANA ANTI-DNA(DS) AB, QN 3 IU/mL (0-9); *ANA ANTI-JO-1 <0.2 AI (0.0-0.9); *ANA ANTICHROMATIN ANTIBODY 0.3 AI (0.0-0.9); *ANA RNP ANTIBODIES 3.5 AI (0.0-0.9); *ANA SJOGREN'S ANTI-SS-A 0.2 AI (0.0-0.9); *ANA SJOGREN'S ANTI-SS-B <0.2 AI (0.0-0.9); *ANAANTI-SCLERODERMA-70 AB 0.3 AI (0.0-0.9); *ANASMITH AB <0.2 AI (0.0-0.9)
[2025-01-12] MEDS: PROPOFOL 100 ML IV PRN (12:01)
[2025-01-12] MEDS ORDERED: ETOMIDATE 2 MG/ML VIAL IV ONE (12:28)
[2025-01-12 12:32] LABS: ABG BASE EXCESS -9.4 mmol/L (-2.0-3.0); ABG OXYGEN SATURATION 98.4 % (94.0-98.0); ABG PCO2 33.3 mmHg (32.0-45.0); ABG PH 7.301 (7.350-7.450); ABG PO2 153.5 mmHg (83.0-108.0); COHb 0.3 % (0.5-1.5); MetHb 0.2 % (0.0-1.5); O2Hb 97.9 % (94.0-97.0); PEEP,BG 0 cm H2O; SITE, ABG LEFT RADIAL; VT, ABG 450 mL
[2025-01-13] VITALS (51 sets, daily range): BP systolic 98–194; BP diastolic 42–86; TEMP 96.5–98.2; O2SAT 97–100
[2025-01-13] MEDS: hydrALAZINE HCL 50 MG TABLET NG SCH (06:38)
[2025-01-13 08:48] LABS: BASOPHILS % (AUTO) 0.3 % (0.0-2.0); HEMATOCRIT 30 % (33-45); HEMOGLOBIN 10.1 g/dL (11.5-14.8); LYMPHOCYTES # (AUTO) 1.4 K/uL (0.8-4.8); LYMPHOCYTES % (AUTO) 13.6 % (20.0-44.0); MEAN CORPUSCULAR HEMOGLOBIN 30 PG (26.0-33.0); MEAN CORPUSCULAR HGB CONC 33 g/dl (31.0-36.0); MEAN CORPUSCULAR VOLUME 89 fL (82-100); MONOCYTES # (AUTO) 0.7 K/uL (0.1-1.30); MONOCYTES % (AUTO) 7.2 % (2.0-12.0); NEUTROPHILS # (AUTO) 8.2 K/uL (1.8-8.9); NEUTROPHILS % (AUTO) 78.9 % (43.0-81.0); PLATELET COUNT (AUTO) 273 K/uL (150-450); RED BLOOD CELL COUNT(AUTO) 3.41 MIL/uL (4.0-5.2); RED CELL DISTRIBUTION WIDTH 16.6 % (11.5-15.0); WHITE BLOOD COUNT (AUTO) 10.4 K/uL (4.3-11.0)
[2025-01-13 09:01] LABS: ALBUMIN 2.5 g/dL (3.4-5.0); BILIRUBIN,TOTAL 0.3 mg/dL (0.2-1.0); CALCIUM, SERUM 9.2 mg/dL (8.5-10.1); CREATININE 1.6 mg/dL (0.6-1.3); POTASSIUM 3.9 mmol/L (3.5-5.1); TOTAL PROTEIN, SERUM 5.8 g/dL (6.4-8.2)
[2025-01-14] VITALS (45 sets, daily range): BP systolic 103–201; BP diastolic 44–88; TEMP 96.8–98; O2SAT 99–100
[2025-01-14 04:29] LABS: BASOPHILS % (AUTO) 0.2 % (0.0-2.0); HEMATOCRIT 27 % (33-45); HEMOGLOBIN 9.3 g/dL (11.5-14.8); LYMPHOCYTES # (AUTO) 0.9 K/uL (0.8-4.8); MEAN CORPUSCULAR HEMOGLOBIN 30 PG (26.0-33.0); MEAN CORPUSCULAR HGB CONC 34 g/dl (31.0-36.0); MEAN CORPUSCULAR VOLUME 88 fL (82-100); MONOCYTES # (AUTO) 0.3 K/uL (0.1-1.30); MONOCYTES % (AUTO) 5.7 % (2.0-12.0); NEUTROPHILS # (AUTO) 4.6 K/uL (1.8-8.9); NEUTROPHILS % (AUTO) 78.1 % (43.0-81.0); PLATELET COUNT (AUTO) 270 K/uL (150-450); RED CELL DISTRIBUTION WIDTH 16.1 % (11.5-15.0); WHITE BLOOD COUNT (AUTO) 5.9 K/uL (4.3-11.0)
[2025-01-14 04:50] LABS: ALBUMIN 2.5 g/dL (3.4-5.0); BILIRUBIN,TOTAL 0.3 mg/dL (0.2-1.0); CREATININE 1.6 mg/dL (0.6-1.3); TOTAL PROTEIN, SERUM 5.8 g/dL (6.4-8.2)
[2025-01-14 05:37] LABS: ABG BASE EXCESS -7.9 mmol/L (-2.0-3.0); ABG OXYGEN SATURATION 97.4 % (94.0-98.0); ABG PCO2 24.7 mmHg (32.0-45.0); ABG PH 7.413 (7.350-7.450); ABG PO2 115.9 mmHg (83.0-108.0); ABG TOTAL HEMOGLOBIN 9.5 G/dL (12.0-16.0); COHb 0.3 % (0.5-1.5); MetHb 0.3 % (0.0-1.5); O2Hb 96.8 % (94.0-97.0); PEEP,BG 5 cm H2O; SITE, ABG LEFT RADIAL; VT, ABG 475 mL
[2025-01-14] MEDS: ISOSORBIDE DINITRATE (20MG) 20 MG TABLET PO SCH (13:07)
[2025-01-14 20:11] LABS: VITAMIN B1 THIAMINE,WB 81.6 nmol/L (66.5-200.0)
[2025-01-15] VITALS (40 sets, daily range): BP systolic 110–177; BP diastolic 47–74; TEMP 97.3–98.6; O2SAT 97–100
[2025-01-15 05:03] LABS: BASOPHILS % (AUTO) 0.2 % (0.0-2.0); HEMATOCRIT 25 % (33-45); HEMOGLOBIN 8.5 g/dL (11.5-14.8); LYMPHOCYTES % (AUTO) 19.2 % (20.0-44.0); MEAN CORPUSCULAR HEMOGLOBIN 31 PG (26.0-33.0); MEAN CORPUSCULAR HGB CONC 34 g/dl (31.0-36.0); MEAN CORPUSCULAR VOLUME 89 fL (82-100); MONOCYTES # (AUTO) 0.4 K/uL (0.1-1.30); MONOCYTES % (AUTO) 8.5 % (2.0-12.0); NEUTROPHILS # (AUTO) 3.8 K/uL (1.8-8.9); NEUTROPHILS % (AUTO) 72.1 % (43.0-81.0); PLATELET COUNT (AUTO) 261 K/uL (150-450); RED BLOOD CELL COUNT(AUTO) 2.79 MIL/uL (4.0-5.2); RED CELL DISTRIBUTION WIDTH 16.1 % (11.5-15.0); WHITE BLOOD COUNT (AUTO) 5.2 K/uL (4.3-11.0)
[2025-01-15 05:09] LABS: ALBUMIN 2.1 g/dL (3.4-5.0); BILIRUBIN,TOTAL 0.2 mg/dL (0.2-1.0); CALCIUM, SERUM 8.4 mg/dL (8.5-10.1); CREATININE 1.5 mg/dL (0.6-1.3); POTASSIUM 3.7 mmol/L (3.5-5.1); TOTAL PROTEIN, SERUM 5.2 g/dL (6.4-8.2)
[2025-01-15] MEDS: DOCUSATE SODIUM LIQ 100 MG/10 ML UDC NG SCH (09:08)
[2025-01-15] MEDS: PANTOPRAZOLE 40 MG/PACK PACK NG SCH (09:09)
[2025-01-15] MEDS: LEVOTHYROXINE SODIUM 75 MCG TABLET NG SCH (09:11)
[2025-01-15] MEDS: NIFEdipine XL (30MG) 30 MG TAB PO SCH (09:11)
[2025-01-15] MEDS: APIXABAN 2.5 MG TABLET NG SCH (09:13)
[2025-01-15 11:07] LABS: *WEST NILE VIRUS IgG, CSF Negative (Negative); *WEST NILE VIRUS IgM, CSF Negative (Negative)
[2025-01-15] MEDS: ISOSORBIDE DINITRATE (20MG) 20 MG TABLET GT SCH (12:22)
[2025-01-15 13:12] LABS: VDRL, CSF Non Reactive (Non Rea:<1:1)
[2025-01-15] MEDS: FERROUS SULFATE UDC 300 MG/5 ML UDC NG SCH (21:25)
[2025-01-16] VITALS (39 sets, daily range): BP systolic 95–197; BP diastolic 45–67; TEMP 98.2–98.8; O2SAT 93–99
[2025-01-16 03:47] LABS: BASOPHILS % (AUTO) 0.1 % (0.0-2.0); EOSINOPHILS # (AUTO) 0.1 K/uL (0.0-0.7); EOSINOPHILS % (AUTO) 1.1 % (0.0-6.0); HEMATOCRIT 26 % (33-45); HEMOGLOBIN 9.1 g/dL (11.5-14.8); LYMPHOCYTES # (AUTO) 1.4 K/uL (0.8-4.8); LYMPHOCYTES % (AUTO) 17.9 % (20.0-44.0); MEAN CORPUSCULAR HEMOGLOBIN 31 PG (26.0-33.0); MEAN CORPUSCULAR HGB CONC 35 g/dl (31.0-36.0); MEAN CORPUSCULAR VOLUME 88 fL (82-100); MONOCYTES # (AUTO) 0.7 K/uL (0.1-1.30); MONOCYTES % (AUTO) 8.7 % (2.0-12.0); NEUTROPHILS # (AUTO) 5.6 K/uL (1.8-8.9); NEUTROPHILS % (AUTO) 72.2 % (43.0-81.0); PLATELET COUNT (AUTO) 246 K/uL (150-450); RED BLOOD CELL COUNT(AUTO) 2.98 MIL/uL (4.0-5.2); RED CELL DISTRIBUTION WIDTH 16.5 % (11.5-15.0); WHITE BLOOD COUNT (AUTO) 7.8 K/uL (4.3-11.0)
[2025-01-16 04:02] LABS: CALCIUM, SERUM 8.6 mg/dL (8.5-10.1); CREATININE 1.3 mg/dL (0.6-1.3); POTASSIUM 3.4 mmol/L (3.5-5.1)
[2025-01-16 04:07] LABS: ALBUMIN 2.1 g/dL (3.4-5.0); BILIRUBIN,TOTAL 0.2 mg/dL (0.2-1.0); TOTAL PROTEIN, SERUM 5.3 g/dL (6.4-8.2)
[2025-01-16] MEDS: POTASSIUM CHLORIDE 20 MEQ POWDER PACKET NG SCH (14:12)
[2025-01-16] MEDS: POTASSIUM CHLORIDE 20 MEQ POWDER PACKET ONE (14:16)
[2025-01-17] VITALS (45 sets, daily range): BP systolic 94–209; BP diastolic 39–84; TEMP 98.7–102.2; O2SAT 91–100
[2025-01-17] MEDS: ACETAMINOPHEN 650 MG/20.3 ML UDC NG PRN (00:11)
[2025-01-17 05:01] LABS: BASOPHILS % (AUTO) 0.1 % (0.0-2.0); EOSINOPHILS # (AUTO) 0.3 K/uL (0.0-0.7); EOSINOPHILS % (AUTO) 2.1 % (0.0-6.0); HEMATOCRIT 31 % (33-45); HEMOGLOBIN 10.5 g/dL (11.5-14.8); LYMPHOCYTES # (AUTO) 1.3 K/uL (0.8-4.8); LYMPHOCYTES % (AUTO) 8.1 % (20.0-44.0); MEAN CORPUSCULAR HEMOGLOBIN 30 PG (26.0-33.0); MEAN CORPUSCULAR HGB CONC 33 g/dl (31.0-36.0); MEAN CORPUSCULAR VOLUME 91 fL (82-100); MONOCYTES # (AUTO) 0.7 K/uL (0.1-1.30); MONOCYTES % (AUTO) 4.6 % (2.0-12.0); NEUTROPHILS # (AUTO) 13.6 K/uL (1.8-8.9); NEUTROPHILS % (AUTO) 85.1 % (43.0-81.0); PLATELET COUNT (AUTO) 218 K/uL (150-450); RED BLOOD CELL COUNT(AUTO) 3.46 MIL/uL (4.0-5.2); RED CELL DISTRIBUTION WIDTH 16.4 % (11.5-15.0)
[2025-01-17 07:53] LABS: ALANINE AMINOTRANSFERASE 15 U/L (12-78); ALBUMIN 1.9 g/dL (3.4-5.0); ALKALINE PHOSPHATASE 83 U/L (46-116); ASPARTATE AMINOTRANSFERASE 31 U/L (15-37); BILIRUBIN,TOTAL 0.3 mg/dL (0.2-1.0); CALCIUM, SERUM 8.2 mg/dL (8.5-10.1); CARBON DIOXIDE 18 mmol/L (21-32); CHLORIDE 109 mmol/L (98-107); CREATININE 1.3 mg/dL (0.6-1.3); GLUCOSE 107 mg/dL (74-106); MAGNESIUM 1.5 mg/dL (1.8-2.4); POTASSIUM 4.8 mmol/L (3.5-5.1); SODIUM SERUM 135 mmol/L (136-145); TOTAL PROTEIN, SERUM 5.6 g/dL (6.4-8.2); UREA NITROGEN, BLOOD 33 mg/dL (7-18)
[2025-01-17] MEDS: LACOSAMIDE ORAL SOLN 50 MG/5 ML UDC NG SCH (09:29)
[2025-01-17] MEDS: MAGNESIUM OXIDE 400 MG TABLET NG ONE (09:29)
[2025-01-17] MEDS: CEFEPIME 2 GM in IV D5W 100 ML IV SCH (13:11)
[2025-01-17] MEDS: NEUTRA PHOS 1 POWD.PACKET NG ONE (16:01)
[2025-01-17 18:30] LABS: APPEARANCE,URINE SLIGHTLY CLOUDY (CLEAR); BILIRUBIN,URINE NEGATIVE (NEGATIVE); BLOOD, URINE NEGATIVE Ery/uL (NEGATIVE); COLOR,URINE YELLOW (YELLOW); KETONES,URINE NEGATIVE (NEGATIVE); LEUKOCYTE ESTERASE ,URINE TRACE (NEGATIVE); NITRITE, URINE POSITIVE (NEGATIVE); PROTEIN,URINE 1+ mg/dl (NEGATIVE); UGLUCOSE NEGATIVE (NEGATIVE); UROBILINOGEN,URINE 0.2 EU/dL (0.2)
[2025-01-17 21:01] LABS: ADD URINE CULTURE YES; BACTERIA,URINE Many /HPF (None Seen); SQUAMOUS EPITHELIAL CELL,UR Few /HPF (None Seen)
[2025-01-17] MEDS: VANCOMYCIN 1 GM /D5W 250 ML PB IV ONE (22:14)
[2025-01-17] MEDS: VANCOMYCIN 1 GM in IV NS 0.9% 250 ML IV ONE (22:16)
[2025-01-18] VITALS (42 sets, daily range): BP systolic 94–190; BP diastolic 36–59; TEMP 98–99.2; O2SAT 92–99
[2025-01-18 06:26] LABS: EOSINOPHILS % (AUTO) 2.9 % (0.0-6.0); HEMATOCRIT 27 % (33-45); LYMPHOCYTES % (AUTO) 7.4 % (20.0-44.0); MEAN CORPUSCULAR HEMOGLOBIN 30 PG (26.0-33.0); MEAN CORPUSCULAR HGB CONC 33 g/dl (31.0-36.0); MEAN CORPUSCULAR VOLUME 90 fL (82-100); MONOCYTES % (AUTO) 7.5 % (2.0-12.0); PLATELET COUNT (AUTO) 257 K/uL (150-450); RED BLOOD CELL COUNT(AUTO) 3.01 MIL/uL (4.0-5.2); RED CELL DISTRIBUTION WIDTH 52.9 % (11.5-15.0); WHITE BLOOD COUNT (AUTO) 19.7 K/uL (4.3-11.0)
[2025-01-18 06:27] LABS: BASOPHILS % (AUTO) 0.2 % (0.0-2.0); EOSINOPHILS # (AUTO) 0.6 K/uL (0.0-0.7); LYMPHOCYTES # (AUTO) 1.4 K/uL (0.8-4.8); MONOCYTES # (AUTO) 1.5 K/uL (0.1-1.30); NEUTROPHILS # (AUTO) 16.2 K/uL (1.8-8.9)
[2025-01-18] MEDS ORDERED: methylPREDNISolone SOD SUCC 125 MG/2ML VIAL IV SCH (09:00)
[2025-01-18 10:27] LABS: ALBUMIN 1.8 g/dL (3.4-5.0); BILIRUBIN,DIRECT 0.1 mg/dL (0.0-0.2); BILIRUBIN,TOTAL 0.3 mg/dL (0.2-1.0); CALCIUM, SERUM 8.6 mg/dL (8.5-10.1); CREATININE 1.4 mg/dL (0.6-1.3); MAGNESIUM 1.7 mg/dL (1.8-2.4); PHOSPHORUS 2.2 mg/dL (2.5-4.9); POTASSIUM 4.1 mmol/L (3.5-5.1); TOTAL PROTEIN, SERUM 5.5 g/dL (6.4-8.2)
[2025-01-18] MEDS: methylPREDNISolone SOD SUCC 40 MG/ML VIAL IV SCH (13:19)
[2025-01-18] MEDS: VALPROATE 500 MG in IV D5W 100 ML IV SCH (14:50)
[2025-01-18] MEDS: NEUTRA PHOS 1 POWD.PACKET NG ONE (16:00)
[2025-01-18] MEDS: NEUTRA PHOS 1 POWD.PACKET ONE (19:05)
[2025-01-18] MEDS: VANCOMYCIN 750 MG in IV D5W 250 ML IV SCH (22:19)
[2025-01-19] VITALS (48 sets, daily range): BP systolic 92–179; BP diastolic 40–87; TEMP 97.7–98.3; O2SAT 96–99
[2025-01-19 04:49] LABS: BASOPHILS # (AUTO) 0.1 K/uL (0.0-0.2); BASOPHILS % (AUTO) 0.3 % (0.0-2.0); EOSINOPHILS # (AUTO) 0.7 K/uL (0.0-0.7); EOSINOPHILS % (AUTO) 3.3 % (0.0-6.0); HEMATOCRIT 27 % (33-45); HEMOGLOBIN 9.1 g/dL (11.5-14.8); LYMPHOCYTES # (AUTO) 1.9 K/uL (0.8-4.8); LYMPHOCYTES % (AUTO) 9.4 % (20.0-44.0); MEAN CORPUSCULAR HEMOGLOBIN 30 PG (26.0-33.0); MEAN CORPUSCULAR HGB CONC 33 g/dl (31.0-36.0); MEAN CORPUSCULAR VOLUME 90 fL (82-100); MONOCYTES # (AUTO) 1.7 K/uL (0.1-1.30); MONOCYTES % (AUTO) 8.5 % (2.0-12.0); NEUTROPHILS # (AUTO) 15.9 K/uL (1.8-8.9); NEUTROPHILS % (AUTO) 78.5 % (43.0-81.0); PLATELET COUNT (AUTO) 300 K/uL (150-450); RED BLOOD CELL COUNT(AUTO) 3.04 MIL/uL (4.0-5.2); WHITE BLOOD COUNT (AUTO) 20.2 K/uL (4.3-11.0)
[2025-01-19 05:18] LABS: ALBUMIN 1.5 g/dL (3.4-5.0); BILIRUBIN,TOTAL 0.3 mg/dL (0.2-1.0); CALCIUM, SERUM 8.8 mg/dL (8.5-10.1); CREATININE 1.4 mg/dL (0.6-1.3); TOTAL PROTEIN, SERUM 5.7 g/dL (6.4-8.2)
[2025-01-20] VITALS (49 sets, daily range): BP systolic 97–193; BP diastolic 43–68; TEMP 97.7–98.5; O2SAT 94–99
[2025-01-20 04:30] LABS: BASOPHILS % (AUTO) 0.2 % (0.0-2.0); EOSINOPHILS # (AUTO) 0.1 K/uL (0.0-0.7); EOSINOPHILS % (AUTO) 0.4 % (0.0-6.0); HEMATOCRIT 23 % (33-45); LYMPHOCYTES # (AUTO) 1.1 K/uL (0.8-4.8); LYMPHOCYTES % (AUTO) 8.8 % (20.0-44.0); MEAN CORPUSCULAR HEMOGLOBIN 30 PG (26.0-33.0); MEAN CORPUSCULAR HGB CONC 35 g/dl (31.0-36.0); MEAN CORPUSCULAR VOLUME 87 fL (82-100); MONOCYTES # (AUTO) 0.9 K/uL (0.1-1.30); MONOCYTES % (AUTO) 7.3 % (2.0-12.0); NEUTROPHILS % (AUTO) 83.3 % (43.0-81.0); PLATELET COUNT (AUTO) 272 K/uL (150-450); RED BLOOD CELL COUNT(AUTO) 2.64 MIL/uL (4.0-5.2); RED CELL DISTRIBUTION WIDTH 16.6 % (11.5-15.0)
[2025-01-20 04:54] LABS: CALCIUM, SERUM 8.6 mg/dL (8.5-10.1); CREATININE 1.5 mg/dL (0.6-1.3); MAGNESIUM 1.9 mg/dL (1.8-2.4); PHOSPHORUS 3.1 mg/dL (2.5-4.9); POTASSIUM 4.2 mmol/L (3.5-5.1)
[2025-01-20 05:45] LABS: PLATELET ESTIMATE ADEQUATE
[2025-01-20 05:47] LABS: LYMPHOCYTES % (MANUAL) 7 % (16-48); MONOCYTES % (MANUAL) 10 % (0-11.0); NEUTROPHILS % (MANUAL) 83 (42-76)
[2025-01-20 05:48] LABS: ANISOCYTOSIS 1+
[2025-01-20] MEDS: VALPROATE 1,000 MG in IV D5W 100 ML IV SCH (20:47)
[2025-01-21] VITALS (30 sets, daily range): BP systolic 102–194; BP diastolic 47–65; TEMP 97.4–98.1; O2SAT 90–99
[2025-01-21 04:49] LABS: BASOPHILS % (AUTO) 0.2 % (0.0-2.0); EOSINOPHILS % (AUTO) 0.5 % (0.0-6.0); HEMATOCRIT 23 % (33-45); HEMOGLOBIN 7.6 g/dL (11.5-14.8); LYMPHOCYTES % (AUTO) 12.6 % (20.0-44.0); MEAN CORPUSCULAR HEMOGLOBIN 30 PG (26.0-33.0); MEAN CORPUSCULAR HGB CONC 34 g/dl (31.0-36.0); MEAN CORPUSCULAR VOLUME 88 fL (82-100); MONOCYTES # (AUTO) 0.7 K/uL (0.1-1.30); MONOCYTES % (AUTO) 8.9 % (2.0-12.0); NEUTROPHILS # (AUTO) 6.4 K/uL (1.8-8.9); NEUTROPHILS % (AUTO) 77.8 % (43.0-81.0); PLATELET COUNT (AUTO) 296 K/uL (150-450); RED BLOOD CELL COUNT(AUTO) 2.56 MIL/uL (4.0-5.2); RED CELL DISTRIBUTION WIDTH 16.9 % (11.5-15.0); WHITE BLOOD COUNT (AUTO) 8.2 K/uL (4.3-11.0)
[2025-01-21 05:07] LABS: IRON, SERUM 27 ug/dl (50-175); TOTAL IRON BINDING CAPACITY 110 ug/dl (250-450)
[2025-01-21 05:12] LABS: CALCIUM, SERUM 8.5 mg/dL (8.5-10.1); CREATININE 1.4 mg/dL (0.6-1.3); MAGNESIUM 1.9 mg/dL (1.8-2.4); PHOSPHORUS 2.9 mg/dL (2.5-4.9); POTASSIUM 4.1 mmol/L (3.5-5.1)
[2025-01-21 05:27] LABS: FERRITIN 491 ng/mL (8-388)
[2025-01-21 06:14] LABS: EOSINOPHILS % (MANUAL) 3 % (0-4); LYMPHOCYTES % (MANUAL) 14 % (16-48); MONOCYTES % (MANUAL) 8 % (0-11.0); MYELOCYTES % 3 % (0-0); NEUTROPHILS % (MANUAL) 72 (42-76)
[2025-01-21 06:16] LABS: ANISOCYTOSIS 1+
== END 2025-01-21 14:24 | disposition short-term general hospital (02) | DRG 100 ==
LOC: ER 19:51 → MEDSG1 21:38 → TELE1 01-07 09:09 → ICU 01-07 13:03
PROVIDERS: ADMIT Nurse Practitioner Family; ATTEND Nurse Practitioner Family
PROC: 05H933Z Insertion of Infusion Device into Right Brachial Vein, Percutaneous Approach (ICD-10-PCS; principal; 2025-01-07)
PROC: 009U3ZX Drainage of Spinal Canal, Percutaneous Approach, Diagnostic (ICD-10-PCS; 2025-01-09)
PROC: 5A1955Z Respiratory Ventilation, Greater than 96 Consecutive Hours (ICD-10-PCS; 2025-01-12)
PROC: 0BH17EZ Insertion of Endotracheal Airway into Trachea, Via Natural or Artificial Opening (ICD-10-PCS; 2025-01-12)
DX: G40.911 Epilepsy, unspecified, intractable, with status epilepticus (principal); J96.01 Acute respiratory failure with hypoxia; D68.59 Other primary thrombophilia; N17.9 Acute kidney failure, unspecified; I13.0 Hypertensive heart and chronic kidney disease with heart failure and stage 1 through stage 4 chronic kidney disease, or unspecified chronic kidney disease; N18.4 Chronic kidney disease, stage 4 (severe); N39.0 Urinary tract infection, site not specified; E87.4 Mixed disorder of acid-base balance; E87.1 Hypo-osmolality and hyponatremia; I50.9 Heart failure, unspecified; Z87.81 Personal history of (healed) traumatic fracture; I25.10 Atherosclerotic heart disease of native coronary artery without angina pectoris; Z79.01 Long term (current) use of anticoagulants; E03.9 Hypothyroidism, unspecified; E78.5 Hyperlipidemia, unspecified; I48.0 Paroxysmal atrial fibrillation; R29.6 Repeated falls; E11.22 Type 2 diabetes mellitus with diabetic chronic kidney disease; E11.51 Type 2 diabetes mellitus with diabetic peripheral angiopathy without gangrene; Z79.899 Other long term (current) drug therapy; Z79.890 Hormone replacement therapy; B96.5 Pseudomonas (aeruginosa) (mallei) (pseudomallei) as the cause of diseases classified elsewhere; M89.8X9 Other specified disorders of bone, unspecified site; R13.10 Dysphagia, unspecified; F03.90 Unspecified dementia, unspecified severity, without behavioral disturbance, psychotic disturbance, mood disturbance, and anxiety; D64.9 Anemia, unspecified; E83.42 Hypomagnesemia; H70.92 Unspecified mastoiditis, left ear
CPT/HCPCS: 31720; 36415; 36600; 70450-TC; 70496-TC; 70551-TC; 71045-TC; 80048-TC; 80053-TC; 80076-TC; 80164-TC; 80202-TC; 81001; 82140-TC; 82550-TC; 82570-TC; 82607-TC; 82728-TC; 82803-TC; 82962-TC; 83540-TC; 83735-TC; 83921; 84100-TC; 84295-TC; 84425; 84439-TC; 84443-TC; 84478-TC; 84484-TC; 85025-TC; 85652-TC; 85730-TC; 86140-TC; 86225; 86235; 86592; 86788; 86789; 87040-TC; 87081-TC; 87086-TC; 87186-TC; 89051-TC; 94003-TC; 94760-TC; 94762-TC; 94799-TC; 95819-TC; A4223; G0378; G0480; J0360; J0692; J1650; J1953; J2060; J2405; J2919; J3370; J3371; J3475; J3490; J7030; J7050; J7060